=== PATIENT | female | born 1965 | race Caucasian/White ===

== ENCOUNTER 2018-07-16 13:59 | Outpatient (CLI) | payer BC ==
[~2018-07-16] VITALS: Ht 157.5 cm; Wt 71.2 kg
[2018-07-16 14:00] VITALS: BP 146/72
[2018-07-16] MEDS ORDERED: ATENOLOL25 MG ORAL (16:33)
--- NOTE | 2018-07-17 14:42 | GI Initial Consult Note ---
History of Present Illness General Date patient seen: Jul 16, 2018 Time patient seen: 14:41 Referring physician: JESSICA Reason for Consultation: SCERENING COLON Present Illness HPI 53 year old female patient presents today with c/o of diarrhea with BM x4 daily in which she describes as bristol stool type #6. The patient denies any other associated GI symptoms; denies abdominal pain, N/V or diarrhea. Patient with no history. No history of endoscopy / colonoscopy . Denies any unintentional weight loss or changes in dietary habits. No signs of abuse or neglect. Patient is not fall risk. Home Meds Reported Medications Atenolol* (TENORMIN*) 25 Mg Tablet, ORAL DAILY, TAB 07/16/18 Med list reviewed/reconciled: Yes Allergies: Coded Allergies: No Known Allergies (Unverified , 07/16/18) Patient History History Provided By: Patient, Medical Record PMH Narrative HTN Denies any surgical history Family History Narrative Mother with DM, heart disease. 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.; Denies: smoking, alcohol use, drug use Review of Systems All Other Systems: negative except mentioned in HPI Physical Exam Vital Signs Date Time Temp Pulse Resp B/P (MAP) Pulse Ox O2 Delivery O2 Flow Rate FiO2 07/16/18 14:00 98.7 98 146/72 96 98.7 Sp02 EP Interpretation: reviewed, normal General Appearance: well appearing, no apparent distress, alert Head: normocephalic EENT: PERRL/EOMI, normal ENT inspection Neck: supple Respiratory: normal breath sounds, no respiratory distress Cardiovascular: normal rate Gastrointestinal: normal inspection, non tender, soft, normal bowel sounds, non -distended Rectal: deferred Genitourinary: no CVA tenderness Musculoskeletal: normal inspection, back normal Neurologic: normal inspection, alert, oriented x3, responsive Psychiatric: normal inspection, judgement/insight normal, memory normal Skin: normal inspection, normal color, no rash, warm/dry, palpation normal, well hydrated Lymphatic: normal inspection, no adenopathy GI: Plan Problems: (1) Diarrhea (2) Colonoscopy planned (3) HTN (hypertension) Plan Colonoscopy to be scheduled pending PA, will contact patient. - CLD & (Nulytely/Suprep/Movi-Prep) prep instructions given and acknowledged by patient. - NPO @ RI day prior procedure explained. Seen with Dr. Shell. Thank you for this patient referral. The patient was seen and examined at bedside and all new and available data was reviewed in the patients chart. I agree with the above findings, impression and plan. (Patient seen earlier today. Signature stamp does not reflect patient encounter time.). - MD Helen CourtneyMendy-Syd BIANCA Jul 17, 2018 14:42
== END 2018-07-16 14:29 | disposition home or self-care (01) ==
LOC: PAN 13:59
DX: R19.7 Diarrhea, unspecified (principal); I10 Essential (primary) hypertension
CPT/HCPCS: 99201

== ENCOUNTER 2018-08-17 07:58 | Day surgery (SDC) | payer BC ==
[2018-08-17] VITALS (7 sets, daily range): BP systolic 129–159; BP diastolic 59–97
[~2018-08-17] VITALS: Ht 157.5 cm; Wt 70.3 kg
[~2018-08-17 07:58] MED LIST: ATENOLOL25 MG ORAL
[2018-08-17] MEDS ORDERED: LOSARTAN POTASS25 M1 PO (08:33)
[2018-08-17] MEDS ORDERED: VITAMIN D1000 UNI1 ORAL (08:33)
--- NOTE | 2018-08-17 08:59 | Anethesia Preoperative Eval ---
Anesthesia Pre-op PMH/ROS General Date of Evaluation: Aug 17, 2018 Time of Evaluation: 08:48 Anesthesiologist: savanna ASA Score: ASA 3 Mallampati Score Class I : Soft palate, uvula, fauces, pillars visible Class II: Soft palate, uvula, fauces visible Class III: Soft palate, base of uvula visible Class IV: Only hard plate visible Mallampati Classification: Class II Surgeon: shandra Diagnosis: colon screening Surgical Procedure: colonoscopy Anesthesia History: none Social History: smoking - nonsmoker Family History: no anesthesia problems Allergies: Coded Allergies: No Known Allergies (Unverified , 08/17/18) Medications: see eMAR Patient NPO?: Yes Past Medical History Cardiovascular: Reports: HTN Anesthesia Pre-op Phys. Exam Physician Exam Last Vital Signs Date Time Temp Pulse Resp B/P (MAP) Pulse Ox O2 Delivery O2 Flow Rate FiO2 08/17/18 08:31 Room Air 08/17/18 08:23 97.8 76 18 147/59 97 97.8 Constitutional: NAD Neurologic: CN 2-12 intact Cardiovascular: RRR Respiratory: CTA Gastrointestinal: S/NT/ND Airway Exam Mallampati Score: Class II MO: full Neck: supple TMD: 2fb ROM: full Dentures: upper Anesthesia Pre-op A/P Labs Labs Test 08/17/18 08:29 Human Chorionic Gonadotropin, Qual Negative (NEGATIVE) Serum Test Labs Test 08/17/18 08:29 Human Chorionic Gonadotropin, Qual Negative (NEGATIVE) Risk Assessment & Plan Assessment: asa3 Plan: mac Status Change Before Surgery: No Pre-Antibiotics Drug: Aida Davenport MD Aug 17, 2018 08:59
[2018-08-17] MEDS ORDERED: fentaNYL 100 mcg/2 mL IV PRN (09:00)
[2018-08-17] MEDS ORDERED: Atropine Inj 1mg/10ml Syr IV PRN (09:00)
[2018-08-17] MEDS ORDERED: DiphenhydrAMINE 50mg/ml Inj IVP PRN (09:00)
[2018-08-17] MEDS ORDERED: Midazolam 2mg/2ml Inj IVP PRN (09:00)
[2018-08-17] MEDS ORDERED: Propofol 200mg/20ml IV ONE (09:30)
[2018-08-17] MEDS ORDERED: Lidocaine 1% MPF 10mg/ml 5ml ONE (09:30)
--- NOTE | 2018-08-17 09:58 | Pre-Procedure Note/Attestation ---
Pre-Procedure Note/Attestation Complete Prior to Procedure Planned Procedure: not applicable Procedure Narrative: colonoscopy Indications for Procedure Pre-Operative Diagnosis: screening Attestation I attest that I discussed the nature of the procedure; its benefits; risks and complications; and alternatives (and the risks and benefits of such alternatives ), prior to the procedure, with the patient (or the patient's legal fraud representative). I attest that, if there was a reasonable possibility of needing a blood transfusion, the patient (or the patient's legal fraud representative) was given the [facility] standardized written summary, pursuant to the [place] Blood Safety Act ([place] Health and Safety Code # 1645, as amended). I attest that I re-evaluated the patient just prior to the surgery and that there has been no change in the patient's H&P, except as documented below: Ezequiel Shell MD Aug 17, 2018 09:58
--- NOTE | 2018-08-17 09:58 | Short Stay Surgery H&P ---
History of Present Illness History of Present Illness Chief Complaint see recent office note HPI Phyllis Werner is a 53 year old female who was admitted on for Screening Patient History Allergies: Coded Allergies: No Known Allergies (Unverified , 08/17/18) Medication History Scheduled Cholecalciferol (Vitamin D3)* (Vitamin D*), 1,000 UNIT ORAL DAILY, (Reported) Losartan Potassium (Losartan Potassium), 12.5 MG PO DAILY, (Reported) Discontinued Medications Atenolol* (Tenormin*), Unknown Dose ORAL DAILY, (Reported) Discontinued Reason: Pt stopped taking med Physical Exam Vital Signs Last Vital Signs Date Time Temp Pulse Resp B/P (MAP) Pulse Ox O2 Delivery O2 Flow Rate FiO2 08/17/18 08:31 Room Air 08/17/18 08:23 97.8 76 18 147/59 97 97.8 Labs Laboratory Tests Test 08/17/18 08:29 Human Chorionic Gonadotropin, Qual Negative (NEGATIVE) Plan Attestation Are the patient's medical conditions optimized for surgery? Ezequiel Shell MD Aug 17, 2018 09:58
--- NOTE | 2018-08-17 10:20 | Endoscopy Procedure Note ---
Endoscopy Procedure Note General Indication for Procedure: screening Procedures Performed: colonoscopy Operative Findings/Diagnosis: 2 polyps Specimen: yes Pt Tolerated Procedure Well: Yes Estimated Blood Loss: none Anesthesia Anesthesiologist: silas Anesthesia: MAC Inserted Devices Implant(s) used?: No Quality Quality of Bowel Preparation: Excellent Did scope reach the cecum?: Yes Was there any complications?: No GI Core Measures 50 yrs or older w/o bx or poly: No 10yrs. F/U not recommended: Yes If not recommended, why?: Above average risk 10 yrs. F/U needed: Yes 18 years or older w/prev. colo: No Ezequiel Shell MD Aug 17, 2018 10:20
--- NOTE | 2018-08-17 10:36 | Immediate Post-Op Evaluation ---
Immediate Post-Op Evalulation Immediate Post-Op Evalulation Procedure: colonoscopy w/ bx Date of Evaluation: Aug 17, 2018 Time of Evaluation: 10:32 IV Fluids: 200ml 0.9ns Blood Products: none Estimated Blood Loss: negligible Blood Pressure Systolic: 150 Blood Pressure Diastolic: 77 Pulse Rate: 66 Respiratory Rate: 18 O2 Sat by Pulse Oximetry: 100 Temperature (Fahrenheit): 97.0 Pain Score (1-10): 0 Nausea: No Vomiting: No Complications none Patient Status: awake, reacts, patent Hydration Status: adequate Drug: Aida Davenport MD Aug 17, 2018 10:36
--- NOTE | 2018-08-17 10:37 | 48 Hour Post Anesthesia Eval ---
Post Anesthesia Evaluation Procedure: colonoscopy w/ bx Date of Evaluation: Aug 17, 2018 Time of Evaluation: 10:36 Blood Pressure Systolic: 144 0: 88 Pulse Rate: 60 Respiratory Rate: 18 Temperature (Fahrenheit): 97.0 O2 Sat by Pulse Oximetry: 100 Airway: patent Nausea: No Vomiting: No Pain Intensity: 0 Hydration Status: adequate Cardiopulmonary Status: stable Mental Status/LOC: patient returned to baseline Post-Anesthesia Complications: none Follow-up care needed: N/A Aida Zamora MD Aug 17, 2018 10:37
--- NOTE | 2018-08-17 15:30 | Procedure Note ---
DATE OF PROCEDURE: 08/17/2018 SURGEON: Ezequiel Shell M.D. ANESTHESIOLOGIST: Dr. Marino. PROCEDURE: Colonoscopy with biopsy. ANESTHESIA: Per Dr. Marino. INSTRUMENT: Olympus adult flexible colonoscope. INDICATIONS: Screening colonoscopy evaluation. The procedure, risks, benefits, and possible consequences, including hemorrhage, aspiration, perforation and infection, and alternative treatments, were explained to the patient/legal guardian by Dr. Ezequiel Shell and the patient/legal guardian understood and accepted these risks. DESCRIPTION OF PROCEDURE: After informed consent was obtained and the patient was adequately sedated, first rectal exam was performed, which was positive for internal hemorrhoids. Then the scope was advanced from the rectum into the cecum and subsequently to terminal ileum. Quality of prep was very good. The patient had two diminutive polyps in the sigmoid area which were removed with the cold biopsy forceps technique. The rest of the colonic examination grossly looked within normal limits. Retroflexion of rectum showed evidence of medium-sized nonbleeding internal hemorrhoids. SUMMARY OF FINDINGS: 1. Two diminutive polyps removed, see above for details. 2. Internal hemorrhoids. RECOMMENDATIONS: 1. Follow up biopsy results. 2. We recommend repeat colonoscopy in 5 years. Ezequiel Shell M.D. DR: Minnie JOB#: [id number] CC:
--- NOTE | 2018-08-19 18:33 | Cardiology Report ---
APPROVED REPORT EKG Measurement Heart [id number] Normal sinus rhythm Nonspecific T wave abnormality Abnormal ECG
== END 2018-08-17 11:30 | disposition home or self-care (01) ==
LOC: GAS 07:58
DX: Z12.11 Encounter for screening for malignant neoplasm of colon (principal); K63.5 Polyp of colon; K64.8 Other hemorrhoids; I10 Essential (primary) hypertension
CPT/HCPCS: 36415; 45380; 84703; 93005; J2704; 94003; 94150

== ENCOUNTER 2018-09-15 08:55 | Outpatient (CLI) | payer BC ==
[~2018-09-15 08:55] MED LIST changes: +LOSARTAN POTASS25 M1 PO; +VITAMIN D1000 UNI1 ORAL
[2018-09-15 09:10] VITALS: BP 131/68
--- NOTE | 2018-09-15 16:25 | GI Progress Note ---
Assessment/Plan Problems: (1) HTN (hypertension) ICD Codes: I10 - Essential (primary) hypertension SNOMED: 89852417 (2) Diarrhea ICD Codes: R19.7 - Diarrhea, unspecified SNOMED: 64454028 Status: stable Status Narrative Seen with Dr. Shell. Assessment/Plan SUMMARY OF FINDINGS reviewed with patient: 1. Two diminutive polyps removed, see above for details. 2. Internal hemorrhoids. RECOMMENDATIONS: 1. Follow up biopsy results. >> benign colonic mucosa 2. We recommend repeat colonoscopy in 5 years. RTC prn The patient was seen and examined at bedside and all new and available data was reviewed in the patients chart. I agree with the above findings, impression and plan. (Patient seen earlier today. Signature stamp does not reflect patient encounter time.). - Ezequiel Shell MD Subjective Gastrointestinal/Abdominal: Reports: no symptoms Objective Last 24 Hour Vital Signs Date Time Temp Pulse Resp B/P (MAP) Pulse Ox O2 Delivery O2 Flow Rate FiO2 09/15/18 09:10 98.2 68 16 131/68 98 General Appearance: WD/WN, no apparent distress, alert Cardiovascular: normal rate Respiratory/Chest: normal breath sounds, no respiratory distress Abdominal Exam: normal bowel sounds, non tender, soft Extremities: normal range of motion, non-tender Guido Cervantes [place] ASSESSOR Sep 15, 2018 16:25
== END 2018-09-15 09:25 | disposition home or self-care (01) ==
LOC: PAN 08:55
DX: I10 Essential (primary) hypertension (principal); R19.7 Diarrhea, unspecified; K64.8 Other hemorrhoids
CPT/HCPCS: 99212